=== PATIENT | male | born 1995 | race Caucasian/White ===

== ENCOUNTER 2018-09-27 19:00 | Emergency (ER) | payer SELFPAY ==
[~2018-09-27] VITALS: Ht 185.4 cm; Wt 62.8 kg
[2018-09-27 19:06] VITALS: BP 123/87
== END 2018-09-27 19:23 | disposition left against medical advice (07) ==
LOC: ED 19:17
DX: E11.65 Type 2 diabetes mellitus with hyperglycemia (principal)
CPT/HCPCS: 82962; 99281; 99282